=== PATIENT | female | born 1950 | race Caucasian/White ===

== ENCOUNTER 2020-02-04 10:18 | Emergency (ER) | payer MEDICARE ==
[~2020-02-04] VITALS: Ht 157.5 cm; Wt 103.5 kg
[~2020-02-04 10:18] MED LIST: Aspirin PO; CLOP75TA57 PO; HYDR-2678 PO; Hydrocodone/Acetaminophen PO; PARO30TA45 PO; WARF2.5T2 PO; WARF2TAB96 PO
[2020-02-04 11:11] LABS: BASO # 0.1 x10^3/uL (0.0-0.2); BASO % 1 % (0-3); EOS # 0.2 x10^3/uL (0.0-0.7); EOS % 3 % (0-3); LYMPH # 1.4 x10^3/uL (1.0-4.8); LYMPH % 17 % (24-48); MEAN CORPUSCULAR HEMOGLOBIN 30 pg (25-35); MEAN CORPUSCULAR HGB CONC 33 g/dL (31-37); MEAN CORPUSCULAR VOLUME 91 fL (79-100); MONO # 0.5 x10^3/uL (0.0-1.1); MONO % 7 % (0-9); NEUT % 73 % (31-73); PLATELET COUNT 342 x10^3/uL (140-400); RED CELL DISTRIBUTION WIDTH 14.7 % (11.5-14.5); WHITE BLOOD COUNT 8.2 x10^3/uL (4.0-11.0)
--- NOTE | 2020-02-04 11:17 | RAD ---
Single AP view of the chest. Comparison: None. Indication: Right arm weakness Findings: The heart is at the upper limits of normal. There is no pneumothorax or effusion. No air space or interstitial disease. Impression: 1. No acute cardiopulmonary process. Electronically signed by: Kristofer Celis MD (02/04/2020 11:14 AM) [id number]
[2020-02-04 11:29] LABS: CALCIUM 9.3 mg/dL (8.5-10.1); CREATININE 1.2 mg/dL (0.6-1.0); GFR 44.5; POTASSIUM 4.6 mmol/L (3.5-5.1)
[2020-02-04 11:35] LABS: ALBUMIN 2.9 g/dL (3.4-5.0); ALBUMIN/GLOBULIN RATIO 0.6 (1.0-1.7); MAGNESIUM 2.3 mg/dL (1.8-2.4); TOTAL BILIRUBIN 0.3 mg/dL (0.2-1.0); TOTAL PROTEIN 7.4 g/dL (6.4-8.2)
--- NOTE | 2020-02-04 12:27 | RAD ---
CT scan of the head without contrast 02/04/2020 Clinical History: Left-sided weakness for one week. Technique: Unenhanced, contiguous, 5 mm axial sections were obtained through the head. One or more of the following individualized dose reduction techniques were utilized for this study: 1. Automated exposure control. 2. Adjustment of the mA and/or kV according to patient size. 3. Use of iterative reconstruction technique. Findings: No previous studies are available for comparison. There is generalized parenchymal atrophy. Areas of decreased attenuation are seen within the periventricular and subcortical white matter of both cerebral hemispheres consistent with areas of small vessel ischemic disease. A small wedge-shaped area of decreased attenuation is seen involving the superior right parietal lobe which measures 2.5 cm in greatest diameter. This is consistent with an area of acute infarction. There is mild mass effect without evidence of midline shift. There is no CT evidence of intracranial hemorrhage. No extra-axial fluid collection is noted. No skull fracture is seen. Impression: Small area of acute infarction is seen involving the right parietal lobe as discussed above. This finding was discussed with Dr. Burciaga. FOR INTERNAL CODING PURPOSES RESULT CODE: (C) Electronically signed by: Jeremie Rose MD (02/04/2020 12:24 PM) [id number]
--- NOTE | 2020-02-04 12:28 | PHYS DOC ---
Past Medical History Past Medical History: Arthritis, CAD, Cancer, Depression, DVT, High Cholesterol, Hypertension, Hypothyroid, MS, Other Additional Past Medical Histor: throat/CERVICAL CA Past Surgical History: Other Additional Past Surgical Histo: carpel tunnel,catarects, right leg metal plate,dvt removal LLE Smoking Status: Current Every Day Smoker Alcohol Use: None Drug Use: None Social History Narrative: OCCASIONAL MARIJUANA General Adult EDM: Chief Complaint: NEURO SYMPTOMS/DEFICITS HPI: HPI: 69 yo F PMH CAD (takes plavix and 81mg asa), HTN. HLD, obesity, tobacco use and throat ca (in remission) presents to the ed with c/o atraumatic, left upper and left lower extremity "numbness" that started 9 days ago, has since resolved but states "I reach for a can and my left hand doesn't work right, I"m having difficulties doing what I want it to do." No prior h/o stroke. Is right hand dominant. Reports numbness is gone but occasionally she can't grab objects with control. No falls, head trauma or gait instability. ROS: No associated headache, blurry vision, aphasia, dysarthria, n/v/d/c, chest pain, sore throat, cough, leg swelling, rash, hemoptysis, neck stiffness, saddle anesthesia, abdominal/back pain, facial droop, drooling, dyspnea. Allergies: Allergies: Allergies Coded Allergies Type Severity Reaction Last Updated Verified No Known Drug Allergies 05/09/14 No Physical Exam: PE: Constitutional: Well developed, well nourished, no acute distress, non-toxic appearance. [] HENT: Normocephalic, atraumatic, bilateral external ears normal, oropharynx moist, no facial droop, Eyes: PERRLA, EOMI, conjunctiva normal, no discharge. [] Neck: Normal range of motion, no tenderness, supple, no stridor. [] Cardiovascular:Heart rate regular rhythm, no murmur [] Lungs & Thorax: Bilateral breath sounds clear to auscultation [] Abdomen: Bowel sounds normal, soft, no tenderness, no masses, no pulsatile masses. [] Skin: Warm, dry, no erythema, no rash. [] Back: No tenderness, no CVA tenderness. [] Extremities: No tenderness, no cyanosis, no clubbing, ROM intact, no edema. [] Neurologic: Alert and oriented X 3, normal motor function, normal sensory function, no focal deficits noted, CN2-12 intact, normal FNF, difficulties w/PINEDA left hand, NIHSS 1 Psychologic: Affect normal, judgement normal, mood normal. [] Current Patient Data: Labs: Laboratory Tests Test 02/04/20 10:30 02/04/20 11:01 Glucose (Fingerstick) 160 mg/dL (70-99) H White Blood Count 8.2 x10^3/uL (4.0-11.0) Red Blood Count 4.60 x10^6/uL (3.50-5.40) Hemoglobin 14.0 g/dL (12.0-15.5) Hematocrit 42.0 % (36.0-47.0) Mean Corpuscular Volume 91 fL (79-100) Mean Corpuscular Hemoglobin 30 pg (25-35) Mean Corpuscular Hemoglobin Concent 33 g/dL (31-37) Red Cell Distribution Width 14.7 % (11.5-14.5) H Platelet Count 342 x10^3/uL (140-400) Neutrophils (%) (Auto) 73 % (31-73) Lymphocytes (%) (Auto) 17 % (24-48) L Monocytes (%) (Auto) 7 % (0-9) Eosinophils (%) (Auto) 3 % (0-3) Basophils (%) (Auto) 1 % (0-3) Neutrophils # (Auto) 6.0 x10^3/uL (1.8-7.7) Lymphocytes # (Auto) 1.4 x10^3/uL (1.0-4.8) Monocytes # (Auto) 0.5 x10^3/uL (0.0-1.1) Eosinophils # (Auto) 0.2 x10^3/uL (0.0-0.7) Basophils # (Auto) 0.1 x10^3/uL (0.0-0.2) Prothrombin Time 13.0 SEC (11.7-14.0) Prothrombin Time INR 1.0 (0.8-1.1) Activated Partial Thromboplast Time 33 SEC (24-38) Sodium Level 138 mmol/L (136-145) Potassium Level 4.6 mmol/L (3.5-5.1) Chloride Level 103 mmol/L (98-107) Carbon Dioxide Level 28 mmol/L (21-32) Anion Gap 7 (6-14) Blood Urea Nitrogen 19 mg/dL (7-20) Creatinine 1.2 mg/dL (0.6-1.0) H Estimated GFR (Cockcroft-Gault) 44.5 BUN/Creatinine Ratio 16 (6-20) Glucose Level 159 mg/dL (70-99) H Calcium Level 9.3 mg/dL (8.5-10.1) Magnesium Level 2.3 mg/dL (1.8-2.4) Total Bilirubin 0.3 mg/dL (0.2-1.0) Aspartate Amino Transferase (AST) 19 U/L (15-37) Alanine Aminotransferase (ALT) 25 U/L (14-59) Alkaline Phosphatase 139 U/L (46-116) H Creatine Kinase 71 U/L (26-192) Troponin I Quantitative < 0.017 ng/mL (0.000-0.055) CP-Dvo-O-Type Natriuretic Peptide 331 pg/mL (0-124) H Total Protein 7.4 g/dL (6.4-8.2) Albumin 2.9 g/dL (3.4-5.0) L Albumin/Globulin Ratio 0.6 (1.0-1.7) L Laboratory Tests 02/04/20 11:01 Laboratory Tests 02/04/20 11:01 Vital Signs: Vital Signs Date Time Temp Pulse Resp B/P (MAP) Pulse Ox O2 Delivery O2 Flow Rate FiO2 02/04/20 10:24 97.7 70 15 161/70 (100) 98 Room Air 97.7 EKG: EKG: Sinus rhythm with mild arrhythmia at 79 bpm, no axis deviation, normal intervals, no T wave inversions, no ST elevations or ST depressions Radiology/Procedures: Radiology/Procedures: IMAGING REPORT Signed PATIENT: ALISHA CARLISLE ACCOUNT: [id number] : 1950 LOCATION: ER AGE: 69 SEX: F EXAM STATUS: REG ER ORD. PHYSICIAN: SOCORRO TERRY DO REASON: r arm weak PROCEDURE: PORTABLE CHEST 1V Single AP view of the chest. Comparison: None. Indication: Right arm weakness Findings: The heart is at the upper limits of normal. There is no pneumothorax or effusion. No air space or interstitial disease. Impression: 1. No acute cardiopulmonary process. Electronically signed by: Kristofer Celis MD (02/04/2020 11:14 AM) [id number] DICTATED and SIGNED BY: KRISTOFER CELIS MD DATE: 02/04/20 111 IMAGING REPORT Signed PATIENT: ALISHA CARLISLE ACCOUNT: [id number] : 1950 LOCATION: ER AGE: 69 SEX: F EXAM STATUS: REG ER ORD. PHYSICIAN: SOCORRO TERRY DO REASON: cva PROCEDURE: CT ANGIOGRAPHY HEAD AND NECK EXAM: CT Angiogram of the Head and Neck INDICATION: Reason: cva / Spl. Instructions: OMNI 300 60 MLS / History: TECHNIQUE: CT images were obtained through the head per standard CTA protocol. Multiplanar and 3D reformatted images were generated from the CT dataset on an independent workstation. All CT scans performed at this facility utilize dose optimization techniques as appropriate to the exam, including the following: Automated exposure control and adjustment of the mA and/or KV according to patient size (this includes techniques or standardized protocols for targeted exams where dose is indication/reason for exam). IV CONTRAST: Administered COMPARISON: None FINDINGS: CTA HEAD: No high-grade large vessel stenosis, proximal or branch vessel occlusion, aneurysm, or vascular malformation. ANTERIOR CIRCULATION: Anterior and middle cerebral arteries are widely patent. ANTERIOR COMMUNICATING ARTERY: Patent. POSTERIOR COMMUNICATING ARTERIES: Present bilaterally and patent. POSTERIOR CIRCULATION: Vertebral and basilar arteries are widely patent. Bilateral posterior inferior cerebellar arteries (PICAs), anterior inferior cerebellar arteries (AICAs), and superior cerebellar arteries (SCAs) are visualized and patent. OTHER: No abnormal brain parenchymal enhancement. The paranasal sinuses, mastoid air cells, and tympanic cavities are clear. NECK CTA: AORTA: 3 vessel configuration of arch. No dissection or acute aortic injury. No hemodynamically significant great vessel origin stenosis. RIGHT CAROTID: Motion artifact at the level of the hyoid bone limits detailed evaluation of the distal cervical internal carotid artery. Common and internal carotid arteries are otherwise widely patent, without evidence of flow limiting stenosis or dissection. LEFT CAROTID: Motion artifact at the level of the hyoid bone limits detailed evaluation of the distal cervical internal carotid artery. Common and internal carotid arteries are otherwise widely patent, without evidence of flow limiting stenosis or dissection. VERTEBRAL ARTERIES: Codominant. No evidence of dissection or flow limiting stenosis. SUBCLAVIAN ARTERIES:Subclavian arteries are patent without stenosis. SOFT TISSUES: Soft tissues are unremarkable. Lung apices are clear. Where applicable, evaluation of ICA stenosis was performed using NASCET criteria, where the site of greatest stenosis is compared to the diameter of the ICA distal to the carotid bulb. IMPRESSION: 1. Normal CTA of the head. 2. Motion artifact degraded CTA of the neck raising possible stenoses in the distal internal cervical carotid arteries. Recommend correlation with carotid duplex ultrasound in further evaluation. FOR INTERNAL CODING PURPOSES Critical result: Findings discussed with SOCORRO TERRY at 02/04/2020 1:55 PM. RESULT CODE: (C) Electronically signed by: Jennifer Murray MD (02/04/2020 1:58 PM) [id number] DICTATED and SIGNED BY: JENNIFER MURRAY MD DATE: 02/04/20 3751 Impression: NIHSS 1 points (ataxia in LUE) NIH Stroke Scale Course & Med Decision Making: Course & Med Decision Making Pertinent Labs and Imaging studies reviewed. (See chart for details) Concern for left upper extremity left lower extremity weakness that has since resolved-sxs started 9 days ago, now with some mild LUE ataxia - normal LLE exam. CT of the head is concerning for a right parietal infarct. CT Angio of the head and neck showed no large vessel occlusion but possible carotid stenosis. I ran this by Dr. Jaquez, neurology, who recommends outpatient echocardiogram, daily aspirin (pt takes 81mg daily, will rx 325mg) and carotid duplex, no indication for mri at this time. I spoke with patient's primary care physician Dr. Fermin who said he would start scheduling these outpt imaging studies and to have pt call for an urgent appointment this week. Pt very happy to be discharged, did not want to be admitted. Has NIHSS 1 Steady gait-no falls or head trauma. Strict ED return precautions were given for aphasia, dysarthria, facial droop, worsening neurologic deficits, dizziness or unsteady gait. Encouraged urgent outpatient follow-up with PMD and neurology. Life-threatening processes were considered but are low suspicion at this time, given history and physical exam. Pt was educated on all prescription medications and adverse effects. All patient's questions were answered and pt was stable at time of discharge. Differential includes cerebrovascular accident, cerebellar stroke, acute coronary syndrome, carbon monoxide poisoning or other toxidrome, arrhythmia, Guillan [place] syndrome, thyroid disease, central and peripheral vertigo, intracranial hemorrhage, vertebrobasilar insufficiency, heat stroke, electrolyte disorder, rheumatologic or autoimmune disorder I spoken with the patient and her caregivers. I explained the patient's condition, diagnoses and treatment plan based on the information available to me at this time. I have answered the patient and her caregiver's questions and addressed any concerns. The patient and her caregivers have a good understanding of patient's diagnosis, condition and treatment plan as can be expected at this point. Vital signs have been stable. Patient's condition is stable and appropriate for discharge from the emergency department. Patient will pursue further outpatient evaluation with primary care physician or other designated or consulting physician as outlined in the discharge instructions. The patient and/or caregivers are agreeable to this plan of care and follow-up instructions have been explained in detail. The patient and/or ca regivers have received these instructions in written form and have expressed an understanding of the discharge instructions. The patient and/or caregivers are aware that any significant change of condition or worsening of symptoms should prompt immediate return to this or the closest emergency department or call to 911. Katerine Disclaimer: Dragjoan Disclaimer: This electronic medical record was generated, in whole or in part, using a voice recognition dictation system. Departure Departure Impression: Primary Impression: CVA (cerebral vascular accident) Disposition: 01 HOME, SELF-CARE Condition: STABLE Referrals: JEAN-CLAUDE URBANO MD (PCP) Patient Instructions: Ischemic Stroke, Stroke Prevention Additional Instructions: Follow up w/Yoandy Mejia MD, in 1 week Neurology Address: [address] [place] [id number] Scripts Aspirin (ASPIRIN) 325 Mg Tablet 1 TAB PO DAILY, #30 TAB 2 Refills Prov: SOCORRO TERRY DO 02/04/20 Justicifation of Admission Dx: Justifications for Admission: Justification of Admission Dx: N/A Stroke - Ischemic: Stroke-Ischemic SOCORRO TERRY DO Feb 04, 2020 12:28
[2020-02-04] MEDS ORDERED: IOHEXOL 300 MG/ML 100ML VIAL. IV ONE (12:45)
--- NOTE | 2020-02-04 14:01 | RAD ---
EXAM: CT Angiogram of the Head and Neck INDICATION: Reason: cva / Spl. Instructions: OMNI 300 60 MLS / History: TECHNIQUE: CT images were obtained through the head per standard CTA protocol. Multiplanar and 3D reformatted images were generated from the CT dataset on an independent workstation. All CT scans performed at this facility utilize dose optimization techniques as appropriate to the exam, including the following: Automated exposure control and adjustment of the mA and/or KV according to patient size (this includes techniques or standardized protocols for targeted exams where dose is indication/reason for exam). IV CONTRAST: Administered COMPARISON: None FINDINGS: CTA HEAD: No high-grade large vessel stenosis, proximal or branch vessel occlusion, aneurysm, or vascular malformation. ANTERIOR CIRCULATION: Anterior and middle cerebral arteries are widely patent. ANTERIOR COMMUNICATING ARTERY: Patent. POSTERIOR COMMUNICATING ARTERIES: Present bilaterally and patent. POSTERIOR CIRCULATION: Vertebral and basilar arteries are widely patent. Bilateral posterior inferior cerebellar arteries (PICAs), anterior inferior cerebellar arteries (AICAs), and superior cerebellar arteries (SCAs) are visualized and patent. OTHER: No abnormal brain parenchymal enhancement. The paranasal sinuses, mastoid air cells, and tympanic cavities are clear. NECK CTA: AORTA: 3 vessel configuration of arch. No dissection or acute aortic injury. No hemodynamically significant great vessel origin stenosis. RIGHT CAROTID: Motion artifact at the level of the hyoid bone limits detailed evaluation of the distal cervical internal carotid artery. Common and internal carotid arteries are otherwise widely patent, without evidence of flow limiting stenosis or dissection. LEFT CAROTID: Motion artifact at the level of the hyoid bone limits detailed evaluation of the distal cervical internal carotid artery. Common and internal carotid arteries are otherwise widely patent, without evidence of flow limiting stenosis or dissection. VERTEBRAL ARTERIES: Codominant. No evidence of dissection or flow limiting stenosis. SUBCLAVIAN ARTERIES:Subclavian arteries are patent without stenosis. SOFT TISSUES: Soft tissues are unremarkable. Lung apices are clear. Where applicable, evaluation of ICA stenosis was performed using NASCET criteria, where the site of greatest stenosis is compared to the diameter of the ICA distal to the carotid bulb. IMPRESSION: 1. Normal CTA of the head. 2. Motion artifact degraded CTA of the neck raising possible stenoses in the distal internal cervical carotid arteries. Recommend correlation with carotid duplex ultrasound in further evaluation. FOR INTERNAL CODING PURPOSES Critical result: Findings discussed with SOCORRO TERRY at 02/04/2020 1:55 PM. RESULT CODE: (C) Electronically signed by: Brad Murray MD (02/04/2020 1:58 PM) [id number]
[2020-02-04 14:30] VITALS: BP 157/70
[2020-02-04] MEDS ORDERED: ASPI325T8 PO (14:39)
[2020-02-04] MEDS ORDERED: ASPIRIN 325 MG TABLET PO ONE (14:45)
--- NOTE | 2020-02-05 07:24 | EKG ---
[facility] [address] [place] [address] Test Date: 2020-02-04 Test Time: 10:27:26 Pat Name: ALISHA CARLISLE Department: Room: Gender: F Licensed Dispensing Optician: : 1950 Requested By: SOCORRO TERRY Order Number: [id number] Reading MD: Measurements Intervals [place] Rate: 79 P: 61 NV: 148 QRS: 22 QRSD: 94 T: 56 QT: 380 QTc: 437 Interpretive Statements SINUS RHYTHM NORMAL ECG RI6.02 No previous ECG available for comparison
== END 2020-02-04 14:49 | disposition home or self-care (01) ==
LOC: ER 10:18
DX: I63.9 Cerebral infarction, unspecified (principal); G83.24 Monoplegia of upper limb affecting left nondominant side; R29.701 NIHSS score 1; E78.00 Pure hypercholesterolemia, unspecified; I10 Essential (primary) hypertension; E03.9 Hypothyroidism, unspecified; I25.2 Old myocardial infarction; I25.10 Atherosclerotic heart disease of native coronary artery without angina pectoris; Z86.718 Personal history of other venous thrombosis and embolism; F17.200 Nicotine dependence, unspecified, uncomplicated
CPT/HCPCS: 36415; 70450; 70496; 70498; 71045; 80053; 82550; 82962; 83735; 83880; 84484; 85025; 85610; 85730; 93005; 99285; Q9967

== ENCOUNTER → 2020-02-14 | Outpatient (CLI) | payer MEDICARE ==
[2020-02-04 14:30] VITALS: BP 157/70
[~2020-02-14] MED LIST changes: +ASPI325T8 PO
--- NOTE | 2020-02-14 14:28 | RAD ---
Clinical Indications: Stroke. Exam : Carotid Duplex with Grayscale Ultrasound and Spectral and Color Doppler Analysis: PQRS Compliance Statement - Stenosis calculations for CT, MR and conventional angiography are based upon measurement of the distal ICA diameter in accordance with the NASCET methodology. Stenosis calculations for carotid ultrasound studies are derived from validated velocity criteria which are known to correlate with the NASCET methodology. Comparison study: CT angiogram head and neck of 02/04/2020. Findings: The common, internal and external carotid arteries were examined by grayscale, color and spectral Doppler ultrasound. There is critical stenosis of the distal right cervical ICA, and moderate (50-69 percent) stenosis of the distal left cervical ICA. The right external carotid artery is occluded. The left external carotid artery exhibits greater than 70 percent stenosis with peak systolic velocity estimated at 481 cm/s. Flow in both vertebral arteries was antegrade and normal. The following are the velocities and ratios in the carotid arteries on both sides: RIGHT ICA PV: 457cm/sec RIGHT CCA PV: 52cm/sec RIGHT ICA ED: 152cm/sec RIGHT IC/CCPV: 8.8 RIGHT VERTEBRAL: antegrade flow RIGHT % STENOSIS: Critical LEFT ICA PV: 186cm/sec LEFT CCA PV: 79cm/sec LEFT ICA ED: 71cm/sec LEFT IC/CCPV: 2.6 LEFT VERTEBRAL: antegrade flow LEFT % STENOSIS: 50-69 percent <50% ICA Stenosis: PSV < 125cm/s (EDV < 40cm/s; SVR < 2.0) 50-69% ICA Stenosis: PSV < 125-229cm/s (EDV 40-99cm/s; SVR 2.0-3.9) >70% ICA Stenosis: PSV > 230cm/s (EDV >100cm/s; SVR >4.0) Impression: 1. Critical stenosis of the right cervical ICA, nearly occluded. 2. Moderate stenosis of the distal left cervical ICA, measuring 50-69 percent by NASCET criteria. 3. Occluded right ECA. 4. Greater than 70 percent stenosis in the left ECA. 5. Antegrade flow in both vertebral arteries. Report telephoned by the technologist at 1:57 PM to referring physician's nurse Pedro Pablo on 02/14/2020. I also left a voicemail regarding these findings for patient's physician Dr. Harvey Rodriguez at 2:07 PM on 02/14/2020. Electronically signed by: Brad Murray MD (02/14/2020 2:25 PM) [id number]
== END | disposition home or self-care (01) ==
LOC: US 13:36
PROVIDERS: ATTEND Family Medicine
DX: I65.23 Occlusion and stenosis of bilateral carotid arteries (principal); I63.9 Cerebral infarction, unspecified
CPT/HCPCS: 93880